=== PATIENT | female | born 1990 | race Caucasian/White ===

== ENCOUNTER 2023-09-28 12:50 | Outpatient (RCR) | payer OTHER | END 2023-09-30 | LOC: M PT 12:50 | PROVIDERS: ATTEND Physician Assistant | DX: R10.2 Pelvic and perineal pain (principal) ==

== ENCOUNTER 2023-10-25 11:45 | Outpatient (RCR) | payer OTHER | END 2023-10-30 | LOC: M PT 11:45 | PROVIDERS: ATTEND Physician Assistant | DX: N81.89 Other female genital prolapse (principal) ==

== ENCOUNTER 2023-11-17 15:00 | Outpatient (RCR) | payer OTHER | END 2023-11-30 | LOC: M PT 15:00 | PROVIDERS: ATTEND Physician Assistant | DX: M99.05 Segmental and somatic dysfunction of pelvic region (principal) ==

== ENCOUNTER 2023-12-01 15:00 | Outpatient (RCR) | payer OTHER | END 2023-12-31 | LOC: M PT 15:00 | PROVIDERS: ATTEND Physician Assistant | DX: M99.05 Segmental and somatic dysfunction of pelvic region (principal) ==